=== PATIENT | male | born 1985 | race Two or more races ===

== ENCOUNTER 2016-06-12 14:47 | Emergency (ER) | payer MEDICAID ==
[2016-06-12 14:55] VITALS: BP 111/85; PULSE 75; RESP 20; TEMP 97.7; O2SAT 97
[2016-06-12] MEDS ORDERED: IBUPROFEN 600 MG TAB PO ONE (15:21)
--- NOTE | 2016-06-12 15:47 | DX ---
Right ankle - 3 views Indication: Rolled ankle. Technique: AP, mortise, and lateral views. Comparison: None Findings: The bones are anatomically aligned. No acute fracture or derangement of the mortise. Mild m edial and lateral soft tissue swelling. Impression: Ankle sprain. No acute fracture.
--- NOTE | 2016-06-12 15:50 | DX ---
Right Foot - 3 views Indication: Trauma. Pain. Technique: AP, oblique, and lateral views. Comparison: None Findings: Bones are anatomically aligned. No acute fracture. Minimal productive arthropathy involves the first metatarsophalangeal joint. Small erosions are present along the medial lateral margin of th e joint line. Impression: 1. Negative. No acute fracture. 2. 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
--- NOTE | 2016-06-12 15:56 | EDPHY ---
H & P Time Seen by Provider: 06/12/16 14:59 HPI/ROS: CHIEF COMPLAINT: Right ankle and foot pain HISTORY OF PRESENT ILLNESS: 30-year-old male presents to the emergency department with pain in his right ankle and foot. The patient states 4 days ago he was stepping down from something and thinks he rolled his right ankle. This happened around 1:00 a.m. on Saturday morning. He denies any other trauma or injury. He was able to bear weight initially however now is unable to bear weight without severe pain. He continues to have swelling and ecchymosis. He did not hit his head or lose consciousness. ROS: Denies numbness or tingling in his toes, pain in the right calf or right knee. Denies hitting his head or losing consciousness. Past Medical/Surgical History: Orthopedic injuries Social History: Single and lives in [place]. He works in construction Smoking Status: Light smoker Physical Exam: On examination the patient has swelling and ecchymosis to the lateral aspect of the right ankle just distal to the lateral malleolus. He has diffuse swelling noted to the dorsal aspect of the right foot. He has full dorsi and plantar flexion. He has no obvious ligament instability. His calf is nontender. He has some mild tenderness with palpation over the lateral malleolus. Nontender over the medial malleolus. His right knee is nontender. His gait is not tested due to pain. He has normal sensation to light touch with normal 2 point discrimination. Strong dorsalis pedis pulse on the dorsal aspect of the right foot noted. Constitutional: Initial Vital Signs Temperature (C) 36.5 C 06/12/16 14:52 Heart Rate 75 06/12/16 14:52 Respiratory Rate 20 06/12/16 14:52 Blood Pressure 111/85 H 06/12/16 14:52 O2 Sat (%) 97 06/12/16 14:52 O2 Delivery Mode Room Air Allergies/Adverse Reactions: No Known Allergies Allergy (Verified 06/12/16 14:52) Home Medications: Medication Instructions Recorded oxyCODONE/APAP 5/325 [Percocet 1 - 2 tab PO Q4-6PRN PRN #15 tab 06/12/16 5/325] MDM/Departure - MDM Diagnostics: X-rays of the right foot and ankle reveal no fractures. This is reviewed by myself the PAC system as well as by the radiologist. Procedures: Patient was placed in a [place] boot and examined post application in good placement with normal [employer]. Medications Given: Discontinued Medications Ibuprofen (Motrin) 600 mg PO EDNOW ONE Stop: 06/12/16 15:22 Last Admin: 06/12/16 15:24 Dose: 600 mg ED Course/Re-evaluation: 30-year-old male presents to the emergency department with right foot and ankle pain. X-rays reveal no fractures. He was placed in a [place] boot and given orthopedic referral. - Depart Disposition: Home, Routine, Self-Care Clinical Impression: Right ankle sprain Qualifiers: Encounter type: initial encounter Involved ligament of ankle: unspecified ligament Qualifier Code: (S93.401A) Sprain of unspecified ligament of right ankle, initial encounter Right foot sprain Qualifiers: Encounter type: initial encounter Qualifier Code: (S93.601A) Unspecified sprain of right foot, initial encounter Condition: Good Instructions: Ankle Sprain (ED), Foot Sprain (ED) Additional Instructions: [place] boot for comfort and support. Ibuprofen 600 mg every 8 hours as needed for pain. Weightbear as tolerated. Percocet for severe pain as directed to help you sleep. Prescriptions: oxyCODONE/APAP 5/325 [Percocet 5/325] 1 - 2 tab PO Q4-6PRN PRN #15 tab PRN Reason: For Moderate To Severe Pain Referrals: Quintin Prather MD [Medical Doctor] - 5-7 days, call for appt. (Orthopedic surgeon on-call)
== END 2016-06-12 16:43 | disposition home or self-care (01) ==
DX: S93.401A Sprain of unspecified ligament of right ankle, initial encounter (principal); S93.601A Unspecified sprain of right foot, initial encounter; F17.200 Nicotine dependence, unspecified, uncomplicated; X58.XXXA Exposure to other specified factors, initial encounter; Y93.89 Activity, other specified
CPT/HCPCS: L4386

== ENCOUNTER 2018-05-07 16:13 | Emergency (ER) | payer MEDICAID ==
[2018-05-07 16:32] VITALS: BP 150/79
--- NOTE | 2018-05-07 17:01 | EDPHY ---
H & P Stated Complaint: BILAT FOOT PAIN X 3 WEEKS/HX OF GOUT IN PAST Time Seen by Provider: 05/07/18 17:01 HPI/ROS: HPI: This is a 32-year-old male who presents with Chief Complaint: BILAT FOOT PAIN X 3 WEEKS/HX OF GOUT IN PAST Location: Left toe and right toe Quality: Swelling and pain Duration: 3 weeks Signs and Symptoms: No bleeding, no radiation, no numbness, no weakness, no tingling, no incontinence, + decreased range of motion,+ swelling, + pain, no fever Timing: Waxes and wane Severity: [id number] Context: Patient does not have a primary care provider, drinks beer daily, presents with alternating right big toe and left big toe redness, warmth, swelling and pain over the last 3 weeks. Patient has been limiting ambulation and use of his feet as much as possible. He has crutches at home that he uses intermittently. Patient reports that he has a history of gout. Denies fever, radiation, weakness, paresthesias. Modifying Factors: None Comment: ROS: A comprehensive 10 system review of systems is otherwise negative aside from elements mentioned in the history of present illness. MEDICAL/SURGICAL/SOCIAL HISTORY: Medical history: fractured ribs (left), fractured scapula (left), GOUT Surgical history: Denies Social history: Light smoker. Employed. CONSTITUTIONAL: Extremely well-appearing polite and cooperative adult male, awake and alert, no obvious distress HEENT: Atraumatic and normocephalic. NECK: supple EXTREMITIES: 2/2 pulses, strength 5/5, bright red red and left toe that is warm to touch with full range of motion. No fluctuance appreciated. No nail injury. DIP/PIP/MCP flexion/extension intact with good light touch sensation. no deformities, no clubbing, no cyanosis or edema. NEUROLOGICAL: no focal neuro deficits. GCS 15. Light touch sensation intact. SKIN: Warm and dry, no erythema. no rash. Good capillary refill. Source: Patient Exam Limitations: No limitations - Personal History Current Tetanus Diphtheria and Acellular Pertussis (TDAP): Yes - Medical/Surgical History Hx Asthma: No Hx Chronic Respiratory Disease: No Hx Diabetes: No Hx Cardiac Disease: No Hx Renal Disease: No Hx Cirrhosis: No Hx Alcoholism: No Hx HIV/AIDS: No Hx Splenectomy or Spleen Trauma: No Other PMH: PMH: fractured ribs (left), fractured scapula (left) GOUT - Social History Smoking Status: Light smoker Constitutional: Initial Vital Signs Temperature (C) 36.8 C 05/07/18 16:30 Heart Rate 84 05/07/18 16:30 Respiratory Rate 18 05/07/18 16:30 Blood Pressure 150/79 H 05/07/18 16:30 O2 Sat (%) 96 05/07/18 16:30 O2 Delivery Mode Room Air Allergies/Adverse Reactions: No Known Allergies Allergy (Verified 05/07/18 16:29) Home Medications: Medication Instructions Recorded oxyCODONE/APAP 5/325 [Percocet 1 - 2 tab PO Q4H PRN #10 tab 05/07/18 5/325 (*)] predniSONE 50 mg PO DAILY 5 Days tablet 05/07/18 Medical Decision Making ED Course/Re-evaluation: Vital signs reviewed and stable upon arrival. Physical exam is consistent with podagra/gouty arthropathy Given colchicine 1.2 mg, Percocet, prednisone 60 mg in the emergency room [facility] Prescription for steroid burst as well as Percocet p.r.n. Advised low purine diet No indication for x-ray imaging at this time No signs of neurovascular compromise/tenting of skin/compartment syndrome/ extremities and joints examined above and below area of concern and are neurovascularly intact/cellulitis. This patient was seen under the supervision of my secondary supervising physician. I evaluated care for this patient independently. Discussed this patient with Dr. Payne who did not see the patient. Differential Diagnosis: Differential diagnosis includes but is not limited to tendinitis, bursitis, plantar fasciitis, fracture, dislocation, tendon injury, gouty arthropathy, cellulitis. Departure - Departure Disposition: Home, Routine, Self-Care Clinical Impression: Podagra, Gouty arthropathy Condition: Good Instructions: Low Purine Diet (ED), Gout (ED) Additional Instructions: Limit use of the affected extremity as much as possible until pain free. Use crutches to aid ambulation. Take Tylenol 650 mg every 4 hours and/or Ibuprofen 600 mg every 8 hours with food as needed for pain. Use Percocet every 6 hours as needed for severe/break through pain. Do not use Tylenol and Percocet concomitantly. Take steroid taper as directed. Start taking your prescriptions steroids tomorrow as you will receive your 1st dose in the emergency room. Follow low purine diet that means avoiding lunch meats and beer. [facility] in the next 1-2 weeks. Referrals: [facility],. [Clinic] - As per Instructions Prescriptions: oxyCODONE/APAP 5/325 [Percocet 5/325 (*)] 1 - 2 tab PO Q4H PRN #10 tab PRN Reason: Pain, Severe predniSONE 50 mg PO DAILY 5 Days tablet
[2018-05-07] MEDS ORDERED: predniSONE 20 MG TAB PO ONE (17:18)
[2018-05-07] MEDS ORDERED: OXYCODONE/APAP 5/325 TAB PO ONE (17:18)
[2018-05-07] MEDS ORDERED: COLCHICINE 0.6 MG CAP/TAB PO ONE (17:18)
== END 2018-05-07 17:45 | disposition home or self-care (01) ==
DX: M10.9 Gout, unspecified (principal)
CPT/HCPCS: J7512